=== PATIENT | female | born 1955 | race Caucasian/White ===

== ENCOUNTER → 2022-04-08 09:43 | Outpatient (CLI) | payer MEDICARE, SELFPAY ==
--- NOTE | ~2022-04-08 | DEXA_ITS ---
Bone Density Report Name: NINA ALVAREZ Age: 67 Sex: Female Ethnicity: White Date of : 1955 Indication: postmenopausal; screening for osteoporosis; parental hip fracture; height loss; cancer; Referring Provider: FRANCISCA PEREZ Study: Bone densitometry was performed. Exam Date: April 08, 2022 Accession number: [id number] Bone Density: Region BMD T-score Z-score Classification AP Spine (L1-L4) 0.868 -1.6 0.2 Osteopenia Femoral Neck (Left) 0.645 -1.8 -0.3 Osteopenia Total Hip (Left) 0.795 -1.2 0.1 Osteopenia Femoral Neck (Right) 0.640 -1.9 -0.3 Osteopenia Total Hip (Right) 0.806 -1.1 0.2 Osteopenia Total Hip Mean 0.801 -1.2 0.2 Osteopenia World Health Organization criteria for BMD impression classify patients as: Normal (T-score at or above -1.0), Osteopenia (T-score between -1.0 and -2.5), or Osteoporosis (T-score at or below -2.5). 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 The patient has risk factors, including: parental hip fracture. Discussion: It is important to ask patients whether they are taking their medications and to encourage continued and appropriate compliance with their osteoporosis therapies to reduce fracture risk. It is also important to review their risk factors and encourage appropriate calcium and vitamin D intakes, exercise, fall prevention and other lifestyle measures. Follow-Up: Consider a repeat BMD and Vertebral Fracture Assessment (VFA) exam in 2 years or sooner if medically necessary, to reassess this patient's status. Reported by: EWA on 04/08/2022 10:16:00 AM. Reviewed, dictated and finalized at location [facility]
== END ==
DX: Z85.3 Personal history of malignant neoplasm of breast (principal); M85.88 Other specified disorders of bone density and structure, other site; M85.852 Other specified disorders of bone density and structure, left thigh; M85.851 Other specified disorders of bone density and structure, right thigh
CPT/HCPCS: 77080

== ENCOUNTER 2022-06-16 13:42 | Emergency (ER) | payer MEDICARE, SELFPAY ==
[2022-06-16 13:59] VITALS: BP 129/73; PULSE 92; RESP 16; TEMP 36.6; O2SAT 99
--- NOTE | 2022-06-16 14:19 | ED.EXTPRO ---
HPI - Extremity Problem General Chief complaint: Extremity Problem,Nontraumatic Stated complaint: SWOLLEN FINGER Time Seen by Provider: 06/16/22 14:19 Source: patient Mode of arrival: ambulatory Limitations: no limitations History of Present Illness HPI Narrative: 67 yo F presents with c/o pain, swelling and redness to R index for approx. 5 days. Not any worse but not getting better. Started motrin last night. reports hx of arthritis. States day before pain started she worked in garden all day long and thinks she over did it. Denies weakness to finger. Some decreased ROM due to pain and swelling. All systems reviewed and negative except as noted above. Related Data Allergies Allergy/AdvReac Type Severity Reaction Status Date / Time levofloxacin Allergy Unknown Unknown Verified 05/29/21 15:46 Review of Systems Review of Systems: CONSTITUTIONAL: Denies fever, chills, or sweats. EYES: Denies visual changes, redness, or discharge. ENT: Denies rhinorrhea, congestion, sore throat, or otalgia. CARDIOVASCULAR: Denies chest pain, palpitations, or edema. RESPIRATORY: Denies cough or dyspnea. GASTROINTESTINAL: Denies abdominal pain, nausea, vomiting, or diarrhea. GENITOURINARY: Denies dysuria or hematuria. SKIN: Denies rash or itching. MUSCULOSKELETAL: Reports pain, swelling and redness to right index finger. NEUROLOGIC: Denies headache, numbness, or weakness. PSYCHIATRIC: Denies anxiety or depression. All other systems reviewed are negative, except as documented in HPI. PMFSH Comments At time of signature, agree with nursing past medical, surgical, social and family history. There is no relevant family history pertinent to the presenting complaint. Exam Narrative: GENERAL: This is a well-nourished, well-developed patient, in no apparent distress. HEAD: normocephalic, atraumatic. EYES: PERRL. Sclera clear/white. Vision is grossly intact. EARS: External ears normal NOSE: External nose normal NECK: Neck supple, non-tender without lymphadenopathy, masses or thyromegaly. CARDIOVASCULAR: Regular rate and rhythm without murmurs, gallops, or rubs. RESPIRATORY: Clear to auscultation. Breath sounds equal bilaterally. No wheezes, rales, or rhonchi. SKIN: warm, Dry, intact with no suspicious lesions or rash, good texture and turgor. NEURO: awake, alert, and oriented to person, place and time. There were no obvious focal neurologic abnormalities. EXTREMITIES: Tenderness to PIP of right index finger. Erythematous, swollen. Mild warmth on palpation. Course Course Level of Care: Express Care Visit Vital Signs Vital signs: Vital Signs Temperature 36.6 C 06/16/22 13:59 Pulse Rate 92 06/16/22 13:59 Respiratory Rate 16 06/16/22 13:59 Blood Pressure 129/73 06/16/22 13:59 Pulse Oximetry 99 06/16/22 13:59 Oxygen Delivery Room Air 06/16/22 13:59 Temperature 36.6 C 06/16/22 13:59 Pulse Rate 92 06/16/22 13:59 Respiratory Rate 16 06/16/22 13:59 Blood Pressure 129/73 06/16/22 13:59 Pulse Oximetry 99 06/16/22 13:59 Oxygen Delivery Room Air 06/16/22 13:59 Reviewed MDM - Extremity (Nontraumatic) MDM Narrative Medical decision making narrative: Patient is aware of diagnosis, understands and agrees to treatment plan. Anticipatory guidance given. Patient agrees to follow-up as directed and is aware of reasons to seek care at the emergency department. 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 Take motrin every 6 to 8 hours to treat pain. Follow up with your primary care physician if not improving. Prescriptions: N
== END 2022-06-16 14:33 | disposition home or self-care (01) ==
PROVIDERS: Emergency Provider Nurse Practitioner Family
DX: M19.041 Primary osteoarthritis, right hand (principal)
CPT/HCPCS: 99203; G0463